=== PATIENT | female | born 1985 | race Asian ===

== ENCOUNTER 2016-12-03 09:49 | Inpatient (IN) | payer SELFPAY ==
[~2016-12-03] VITALS: Ht 171 cm; Wt 65.0 kg
[2016-12-03] MEDS ORDERED: METHYLERGONOVINE 0.2 MG/ML AMP IM PRN (17:15)
[2016-12-03] MEDS ORDERED: PROMETHAZINE 25 MG/ML VIAL IVP PRN (17:15)
[2016-12-03] MEDS ORDERED: FERR325E14 PO (17:15)
[2016-12-03] MEDS ORDERED: OXYTOCIN 10 UNITS/ML VIAL IM SCH (17:15)
[2016-12-03 17:28] VITALS: BP 118/80
[2016-12-03 18:11] LABS: EOSINOPHILS # (AUTO) 0.1 K/uL (0-0.4); EOSINOPHILS % (AUTO) 1.3 % (0.0-4.0); HEMATOCRIT 35.5 % (36-48); HEMOGLOBIN 11.8 g/dL (12.0-16.0); LYMPHOCYTES # (AUTO) 0.5 K/uL (2.5-16.5); LYMPHOCYTES % (AUTO) 8.1 % (20.5-51.1); MEAN CORPUSCULAR HEMOGLOBIN 30 pg (27-31); MEAN CORPUSCULAR HGB CONC 33 g/dL (33-37); MEAN CORPUSCULAR VOLUME 91 fL (80-94); MONOCYTES # (AUTO) 0.2 K/uL (0.8-1.0); MONOCYTES % (AUTO) 2.9 % (1.7-9.3); NEUTROPHILS % (AUTO) 87.7 % (42.2-75.2); PLATELET COUNT (AUTO) 127 K/uL (140-450); RED CELL DISTRIBUTION WIDTH 12.1 % (11.6-13.7); WHITE BLOOD COUNT (AUTO) 5.8 K/uL (4.8-10.8)
[2016-12-03 18:21] LABS: BILIRUBIN,URINE NEGATIVE (NEGATIVE); BLOOD, URINE NEGATIVE (NEGATIVE); COLOR,URINE YELLOW (YELLOW); LEUKOCYTE ESTERASE ,URINE TRACE (NEGATIVE); NITRITE, URINE NEGATIVE (NEGATIVE); PROTEIN,URINE NEGATIVE (NEGATIVE); UGLUCOSE NEGATIVE (NEGATIVE); UROBILINOGEN,URINE 0.2 EU/dL (0.2 - 1)
[2016-12-03] MEDS ORDERED: MISOPROSTOL 25 MCG TAB ONE (18:31)
[2016-12-03 18:34] LABS: APPEARANCE,URINE HAZY (CLEAR)
[2016-12-03 18:41] LABS: ANION GAP 11.3 (8-16); CALCIUM 8.2 mg/dL (8.5-10.1); CARBON DIOXIDE 25.7 mmol/L (21-32); CREATININE 0.7 mg/dL (0.6-1.3)
[2016-12-03 18:43] LABS: BACTERIA,URINE 1+ /HPF (None Seen); RBC,URINE NONE SEEN /HPF (0-5); SQUAMOUS EPITHELIAL CELL,UR 4-10 (MOD) /LPF (0-3 (FEW)); WBC,URINE 0-5 (RARE) /HPF (0-5)
[2016-12-03 18:48] LABS: ALBUMIN 2.8 g/dL (3.4-5.0); TOTAL BILIRUBIN 0.3 mg/dL (0.0-1.0); TOTAL PROTEIN, SERUM 6.8 g/dL (6.4-8.2)
[2016-12-03 19:34] LABS: HIV RAPID SCREEN NON-REACTIVE (NON REACTIV)
[2016-12-03] MEDS ORDERED: MISOPROSTOL 25 MCG TAB VG SCH (20:00)
[2016-12-03] MEDS ORDERED: BUPIVACAINE 0.125%/NS PREMIX 250 ML ONE (21:46)
[2016-12-03] MEDS ORDERED: INFLUENZA VIRUS VACCINE QUAD 0.5 ML SYR IMVAC SCH (22:00)
[2016-12-03] MEDS: LACTATED RINGERS 1,000 ML IV SCH (22:00)
[2016-12-03] MEDS ORDERED: OXYTOCIN 20 UNITS/LR PREMIX 1,000 ML IV SCH (23:00)
[2016-12-04] MEDS: LACTATED RINGERS 1,000 ML IV SCH (01:25)
[2016-12-04] MEDS ORDERED: OXYTOCIN 10 UNITS/ML VIAL ONE (03:17)
--- NOTE | 2016-12-04 08:47 | NUR ---
PATIENT HAS BEEN SCREENED AND CATEGORIZED LOW NUTRITION RISK. PATIENT WILL BE SEEN WITHIN 7 DAYS OF ADMISSION. 12/10/[address]
[2016-12-04 09:09] LABS: RAPID PLASMA REAGIN NON-REACTIVE (Non Reactiv)
[2016-12-04] MEDS ORDERED: AMMONIA AROMATIC 1 INHL INH ONE (11:18)
[2016-12-04] MEDS ORDERED: IBUPROFEN 800 MG TAB PO PRN (11:35)
[2016-12-04] MEDS ORDERED: BENZOCAINE/MENTHOL 20%-0.5% 60 GM CAN TP PRN (11:35)
[2016-12-04] MEDS ORDERED: oxyCODONE/APAP 5/325 MG 1 TAB TAB PO PRN (11:35)
[2016-12-04] MEDS ORDERED: METHYLERGONOVINE 0.2 MG/ML AMP IM PRN (11:35)
[2016-12-04] MEDS ORDERED: METHYLERGONOVINE 0.2 MG TAB PO PRN (11:35)
[2016-12-04] MEDS ORDERED: TEMAZEPAM 15 MG CAP PO PRN (11:35)
[2016-12-04] MEDS ORDERED: MEASLES, MUMPS, AND RUBELLA 1 VIAL SQVAC PRN (11:35)
[2016-12-04] MEDS: HYDROcodone/APAP 5/325 MG 1 TAB TAB PO PRN ×2 (11:52→18:20)
[2016-12-04] MEDS ORDERED: DOCUSATE SOD/SENNA 50/8.6 MG 1 TAB PO SCH (21:00)
[2016-12-05] MEDS: HYDROcodone/APAP 5/325 MG 1 TAB TAB PO PRN ×3 (05:03→15:01)
[2016-12-05 06:10] LABS: HEMATOCRIT 30.3 % (36-48)
== END 2016-12-05 16:30 | disposition home or self-care (01) | DRG 775 ==
LOC: MLD 16:45 → MFCC 12-04 08:02
PROVIDERS: ADMIT Obstetrics & Gynecology; ATTEND Obstetrics & Gynecology
PROC: 10D07Z6 Extraction of Products of Conception, Vacuum, Via Natural or Artificial Opening (ICD-10-PCS; principal; 2016-12-03)
PROC: 10907ZC Drainage of Amniotic Fluid, Therapeutic from Products of Conception, Via Natural or Artificial Opening (ICD-10-PCS; 2016-12-03)
PROC: 0W8NXZZ Division of Female Perineum, External Approach (ICD-10-PCS; 2016-12-03)
PROC: 3E0P7GC Introduction of Other Therapeutic Substance into Female Reproductive, Via Natural or Artificial Opening (ICD-10-PCS; 2016-12-03)
PROC: 00HU33Z Insertion of Infusion Device into Spinal Canal, Percutaneous Approach (ICD-10-PCS; 2016-12-03)
PROC: 3E0R3CZ (ICD-10-PCS; 2016-12-03)
PROC: 3E0234Z Introduction of Serum, Toxoid and Vaccine into Muscle, Percutaneous Approach (ICD-10-PCS; 2016-12-05)
DX: O36.8130 Decreased fetal movements, third trimester, not applicable or unspecified (principal); O69.2XX0 Labor and delivery complicated by other cord entanglement, with compression, not applicable or unspecified; Z3A.39 39 weeks gestation of pregnancy; Z37.0 Single live birth; Z23 Encounter for immunization
CPT/HCPCS: 36415; 51702; 80053; 81001; 85018; 85025; 86592; 86886; 86900; 86901; 87086; 90658; 90715; J2590; J3490; J7120